=== PATIENT | male | born 1995 | race African-American/Black ===

== ENCOUNTER 2017-05-30 15:01 | Emergency (ER) | payer OTHER ==
[2017-05-30 15:39] VITALS: BP 140/77
[2017-05-30] MEDS ORDERED: Ibuprofen TAB* 400 MG PO ONE (16:13)
[2017-05-30] MEDS ORDERED: HYDROcodone/ACETAMIN 5-325 MG* 1 TAB PO ONE (16:23)
[2017-05-30] MEDS ORDERED: Lidocaine 1% MPF* 2 ML VIAL INJ ONE (16:24)
--- NOTE | 2017-05-30 17:11 | UC ---
Hand/Wrist HPI - HPI Summary HPI Summary: patient states he was running competitive track this afternoon when he fell and rolled over his flexed left hand, bending his 5th finger. He noticed swelling and deformity, medic applied splint and iced it and was brought to by cab. Denies pain at this time. - History Of Current Complaint Chief Complaint: UCUpperExtremity Stated Complaint: FINGER INJURY Time Seen by Provider: 05/30/17 15:23 Hx Obtained From: Patient Onset/Duration: Sudden Onset Severity Initially: Moderate Severity Currently: Moderate Pain Intensity: 6 Character Of Pain: Dull Aggravating Factor(s): Movement Alleviating Factor(s): Rest, Ice - Allergies/Home Medications Allergies/Adverse Reactions: Allergies Allergy/AdvReac Type Severity Reaction Status Date / Time No Known Allergies Allergy Verified 05/30/17 15:46 PMH/Surg Hx/FS Hx/Imm Hx Previously Healthy: Yes - Surgical History Surgical History: None - Social History Alcohol Use: Weekly Substance Use Type: None Smoking Status (MU): Never Smoked Tobacco Review of Systems Constitutional: Negative Musculoskeletal: Arthralgia, Edema All Other Systems Reviewed And Are Negative: Yes Physical Exam Triage Information Reviewed: Yes Appearance: Well-Appearing Vital Signs: Initial Vital Signs Temp 98.8 F 05/30/17 15:31 Pulse 73 05/30/17 15:31 Resp 14 05/30/17 15:31 BP 140/77 05/30/17 15:31 Pulse Ox 99 05/30/17 15:31 Vital Signs Reviewed: Yes ENT Exam: Normal Neck: Positive: Supple Respiratory: Positive: Chest non-tender Cardiovascular: Positive: Pulses Normal, Brisk Capillary Refill Musculoskeletal: Positive: Strength Intact, ROM Intact, No Edema, Other: - 5th finger deformity proximal phalanx displaced dorsally to mid phalanx Neurological: Positive: Muscle Tone Normal Procedures - Splinting Pre-Made Type: metal Splint: volar Pre-Proc Neuro Vasc Exam: normal Post-Proc Neuro Vasc Exam: normal - Joint Reduction Joint Reduction Site: other - 5th finger left hand Specify Other Joint Reduced: 5th finger PIP joint left hand Conscious Sedation: No Pre-Procedure NV Exam: Yes Post Joint Reduction Film: joint reduced Hand/Wrist Course/Dx - Course Course Of Treatment: f/u orthopedic surgery - Differential Dx/Diagnosis Provider Diagnoses: 5th finger left hand dislocation Discharge - Discharge Plan Condition: Stable Disposition: HOME Prescriptions: Ibuprofen TAB* [Motrin TAB* 400 MG] 400 mg PO Q6H PRN #30 tab PRN Reason: Pain Referrals: No Primary Care Phys,NOPCP [Primary Care Provider] - Mode Moreno MD [Medical Doctor] -
--- NOTE | 2017-05-30 17:44 | RAD ---
INDICATION: Pain at the left fifth proximal interphalangeal joint after a fall COMPARISON: None. TECHNIQUE: 3 views of the left small finger were obtained. FINDINGS: There is posterior dislocation at the proximal interphalangeal joint left small finger. No definite fracture is identified. Remaining visualized bones are intact. IMPRESSION: POSTERIOR DISLOCATION AT THE LEFT SMALL FINGER PROXIMAL INTERPHALANGEAL JOINT.
== END 2017-05-30 17:34 | disposition home or self-care (01) ==
LOC: UCEAST 15:01
DX: S63.287A Dislocation of proximal interphalangeal joint of left little finger, initial encounter (principal); W18.30XA Fall on same level, unspecified, initial encounter; Y93.02 Activity, running; Y92.39 Other specified sports and athletic area as the place of occurrence of the external cause
CPT/HCPCS: 26770; 73140; 99202; G0463